=== PATIENT | male | born 2000 | race Caucasian/White ===

== ENCOUNTER 2018-03-27 16:38 | Inpatient (IN) ==
[2018-03-27] MEDS ORDERED: *HR* LORazepam 1 MG TABLET PO PRN (16:52)
[2018-03-27] MEDS ORDERED: MOM Conc 10 ML UD.LIQ PO PRN (16:52)
[2018-03-27] MEDS ORDERED: Acetaminophen 325 MG TABLET PO PRN (16:52)
[2018-03-27] MEDS ORDERED: Nicotine 2 MG GUM BC PRN (16:52)
[2018-03-27] MEDS ORDERED: *HR* LORazepam 2 MG/ML VIAL IM PRN (16:52)
[2018-03-27] MEDS ORDERED: Haloperidol Lactate 5 MG/ML VIAL IM PRN (16:52)
[2018-03-27] MEDS: traZODone 50 MG TABLET PO PRN (21:43)
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
[2018-03-28] MEDS: traZODone 50 MG TABLET PO PRN (22:10)
[2018-03-28] MEDS: lamoTRIgine 25 MG TABLET PO SCH (22:10)
[2018-03-29] MEDS: lamoTRIgine 25 MG TABLET PO SCH ×2 (09:06→21:15)
--- NOTE | 2018-03-29 10:04 | Psychiatry Progress Note ---
Date of Encounter: 03/29/18 Time of Encounter: 10:00 Subjective Interval history: Client admitted following a serious overdose attempt. Client reports he took all of his psych meds. Estimates it was better than 60 pills out of three different bottles. Was in the ICU on a vent. States now that seriousness of his actions "has taught me a lesson." Denies any further SI. Upbeat and future oriented. States from now on his fitrudie is going to give him his medications. Reports he will not even touch pill bottles. His plan is to live in a tent with this fionae for the remainder of the summer. A discharge to the street cannot happen over the weekend so will remain in the hospital until at least the first of the week. Client seems stable but he is lower functioning and clearly has limited coping skills and impulse control. Would benefit from multiple service modalities. Review of Systems Constitutional: Denies: fever, chills, weakness, weight change Eyes: Denies: eye pain, vision change Ears, Nose, Throat: Denies: ear pain, throat pain, dental pain, hearing loss, congestion Cardiovascular: Denies: chest pain, palpitations, dyspnea on exertion Respiratory: Denies: cough, dyspnea, wheezes Gastrointestinal: Denies: abdominal pain, nausea, vomiting, diarrhea, constipation Musculoskeletal: Denies: joint swelling, joint pain Neurological: Denies: headache, weakness, numbness, memory loss Psychiatric: Reports: depression, anxiety, difficulty concentrating Results - Vital Signs Vital Signs: Temp Pulse Resp BP 98.6 F 63 16 112/63 03/28/18 21:00 03/28/18 21:00 03/28/18 21:00 03/28/18 21:00 - Labs Labs: Laboratory Results - last 24 hr 03/29/18 08:01 Creatine Kinase 271 H Assessment and Plan (1) Bipolar disorder Current visit: Yes Status: Acute Plan: Continue hospitalization, Close observation, Suicide Precautions per unit protocol, Encourage participation in unit milieu, Group Therapy, Monitor sleep, Monitor appetite Risks, benefits, side effects, alternatives discussed w/pt: Yes Patient agreeable to treatment: Yes Qualifiers: Active/Remission status: currently active Current bipolar episode type: mixed Current episode severity: severe Psychotic features: without psychotic features Qualified Code(s): F31.63 - Bipolar disorder, current episode mixed, severe, without psychotic features Consult Discharge Plan - Plan Referrals: [facility] [Outside] - 04/02/18 1:30 pm (The above appointment is with Radha Hernandez. When you come to your first appointment, you will be completing paperwork, meeting with a counselor, and developing a treatment plan. You will receive follow- up appointments for on-going services , which could include community support, mental health and substance abuse counseling, groups/partial hospitalization programming, medication assisted treatment, and psychiatric medication management. Please bring the following with you to your first visit to the clinic: 1) proof of household income (two consecutive pay stubs, social security award letter, bank statement, statement letter from [facility], child support statement, IRS 1040 or W2 form, or a statement from the person who financially supports you stating they help provide for your basic needs), 2) proof of residency (drivers license, a piece of mail showing your address, a statement from person you live with verifying you live at their address), 3) your social security card, 4) photo ID, 5) your insurance card (if you have commercial insurance you must call to obtain a prior authorization number before you arrive to your first appointment) and 6) if you do not have insurance but have applied for Medicaid, please bring verification you have applied. The above appointment(s) reflects first availability. You may contact the office regularly to check for cancellations that may allow you to be seen sooner.) [facility] [Outside] - 04/17/18 1:00 pm (The above appointment is with Shelly Carty for outpatient psychiatric assessment and medication management services. Please arrive 15 minutes early to complete paperwork. Please bring your insurance card, photo ID and medications in their original bottles. If you do not have insurance, bring proof of income to apply for the sliding fee scale. If you are unable to keep this appointment, 24 hour business notice of cancellation is expected. The above appointment(s) reflects first availability. You may contact the office regularly to check for cancellations that may allow you to be seen sooner.) Psychiatry Exam - Constitutional Vitals: Temp Pulse Resp BP 98.6 F 63 16 112/63 03/28/18 21:00 03/28/18 21:00 03/28/18 21:00 03/28/18 21:00 General appearance: age & developmentally appropriate - Musculoskeletal Gait: normal Station: relaxed Strength & Tone: normal for patient - Psychiatric Patient Orientation: Yes Person, Yes Time, Yes Place Level of alertness: Alert Behavior: calm, cooperative Psychomotor activity: Normal Eye Contact: Maintains Eye Contact Mood Description: Euthymic/stable Affect description: congruent with mood, full range Speech Volume: Normal Speech pattern: normal rate, normal rhythm, normal tone, fluent, spontaneous Language & Vocabulary: consistent with education Thought Process: Linear, Goal Oriented Thought Content: No Suicidal ideation, No Homicidal ideation, No Overt delusions Perceptual Disturbances: No Auditory hallucinations, No Visual hallucinations Attention Span Ability: Capable of Focused Attention Memory Description: Grossly Intact Patient Reliability: Questionable Historian Fund of knowledge: Yes below average Intelligence Estimate: Below Average Judgment: Limited Insight: Minimal
[2018-03-29] MEDS: traZODone 50 MG TABLET PO PRN (21:15)
[2018-03-30] MEDS: lamoTRIgine 25 MG TABLET PO SCH ×2 (09:34→20:50)
--- NOTE | 2018-03-30 10:07 | Psychiatry Progress Note ---
Date of Encounter: 03/30/18 Time of Encounter: 10:04 Subjective Interval history: Looks good. No issues. Bright and reactive on the unit. Seems lower functioning with limited coping skills but he has been behaviorally appropriate in the hospital. No impulse control problems here. Denies SI. Continues to say what he did scared him and it won't happen again. Seems sincere that he wants to live and does not appear outwardly depressed. Future oriented. Social. Feels ready to leave. Has to leave on a weekday since his discharge plan is to a tent and he has refused homeless shelters and other forms of housing the hospital can provide. However, he is clinically ready to go and can be discharged after the weekend. Review of Systems Constitutional: Denies: fever, chills, weakness, weight change Eyes: Denies: eye pain, vision change Ears, Nose, Throat: Denies: ear pain, throat pain, dental pain, hearing loss, congestion Cardiovascular: Denies: chest pain, palpitations, dyspnea on exertion Respiratory: Denies: cough, dyspnea, wheezes Gastrointestinal: Denies: abdominal pain, nausea, vomiting, diarrhea, constipation Musculoskeletal: Denies: joint swelling, joint pain Neurological: Denies: headache, weakness, numbness, memory loss Psychiatric: Reports: depression, anxiety, difficulty concentrating Results - Vital Signs Vital Signs: Temp Pulse Resp BP 98.8 F 58 17 133/53 03/29/18 20:28 03/29/18 20:28 03/29/18 20:28 03/29/18 20:28 Assessment and Plan (1) Bipolar disorder Current visit: Yes Status: Acute Plan: Continue hospitalization, Close observation, Suicide Precautions per unit protocol, Encourage participation in unit milieu, Group Therapy, Monitor sleep, Monitor appetite Risks, benefits, side effects, alternatives discussed w/pt: Yes Patient agreeable to treatment: Yes Qualifiers: Active/Remission status: currently active Current bipolar episode type: mixed Current episode severity: severe Psychotic features: without psychotic features Qualified Code(s): F31.63 - Bipolar disorder, current episode mixed, severe, without psychotic features Consult Discharge Plan - Plan Referrals: [facility] [Outside] - 04/02/18 1:30 pm (The above appointment is with Radha Hernandez. When you come to your first appointment, you will be completing paperwork, meeting with a counselor, and developing a treatment plan. You will receive follow- up appointments for on-going services , which could include community support, mental health and substance abuse counseling, groups/partial hospitalization programming, medication assisted treatment, and psychiatric medication management. Please bring the following with you to your first visit to the clinic: 1) proof of household income (two consecutive pay stubs, social security award letter, bank statement, statement letter from [facility], child support statement, IRS 1040 or W2 form, or a statement from the person who financially supports you stating they help provide for your basic needs), 2) proof of residency (drivers license, a piece of mail showing your address, a statement from person you live with verifying you live at their address), 3) your social security card, 4) photo ID, 5) your insurance card (if you have commercial insurance you must call to obtain a prior authorization number before you arrive to your first appointment) and 6) if you do not have insurance but have applied for Medicaid, please bring verification you have applied. The above appointment(s) reflects first availability. You may contact the office regularly to check for cancellations that may allow you to be seen sooner.) [facility] [place] [Outside] - 04/17/18 1:00 pm (The above appointment is with Shelly Carty for outpatient psychiatric assessment and medication management services. Please arrive 15 minutes early to complete paperwork. Please bring your insurance card, photo ID and medications in their original bottles. If you do not have insurance, bring proof of income to apply for the sliding fee scale. If you are unable to keep this appointment, 24 hour business notice of cancellation is expected. The above appointment(s) reflects first availability. You may contact the office regularly to check for cancellations that may allow you to be seen sooner.) Psychiatry Exam - Constitutional Vitals: Temp Pulse Resp BP 98.8 F 58 17 133/53 03/29/18 20:28 03/29/18 20:28 03/29/18 20:28 03/29/18 20:28 General appearance: age & developmentally appropriate, well-groomed, well- nourished - Musculoskeletal Gait: normal Station: relaxed Strength & Tone: normal for patient - Psychiatric Patient Orientation: Yes Person, Yes Time, Yes Place Level of alertness: Alert Behavior: calm, cooperative Psychomotor activity: Normal Eye Contact: Maintains Eye Contact Mood Description: Euthymic/stable Affect description: congruent with mood, full range Speech Volume: Normal Speech pattern: normal rate, normal rhythm, normal tone, fluent, spontaneous Language & Vocabulary: consistent with education Thought Process: Linear, Goal Oriented Thought Content: No Suicidal ideation, No Homicidal ideation, No Overt delusions Perceptual Disturbances: No Auditory hallucinations, No Visual hallucinations Attention Span Ability: Capable of Focused Attention Memory Description: Grossly Intact Patient Reliability: Reliable Historian Fund of knowledge: Yes abstraction ability, Yes aware of current events Intelligence Estimate: Below Average Judgment: Limited Insight: Partial
[2018-03-30] MEDS: traZODone 50 MG TABLET PO PRN (20:51)
[2018-03-31] MEDS: lamoTRIgine 25 MG TABLET PO SCH ×2 (08:51→21:00)
[2018-03-31] MEDS: hydrOXYzine pamoate 25 MG CAPSULE PO PRN (10:18)
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
[2018-03-31] MEDS: traZODone 50 MG TABLET PO PRN (21:00)
[2018-04-01] MEDS: lamoTRIgine 25 MG TABLET PO SCH (08:38)
[2018-04-01 09:31] VITALS: BP 121/68
[2018-04-01] MEDS: hydrOXYzine pamoate 25 MG CAPSULE PO PRN (12:18)
--- NOTE | 2018-04-01 14:23 | Discharge Summary ---
Date of Encounter: 04/01/18 Time of Encounter: 14:15 Diagnosis - Discharge Diagnosis (1) Bipolar disorder, current episode mixed, severe, without psychotic features Priority: Primary Status: Acute (2) Adult antisocial behavior Priority: Secondary Status: Acute (3) Suicide attempt by multiple drug overdose Priority: Secondary Status: Resolved Qualifiers: Encounter type: subsequent encounter Qualified Code(s): T50.902D - Poisoning by unspecified drugs, medicaments and biological substances, intentional self-harm, subsequent encounter Medications - Discharge Medications Prescriptions: Citalopram [CeleXA] 10 mg PO DAILY 14 Days #14 tablet Docusate Sodium [Dok] 100 mg PO DAILY 14 Days #14 capsule lamoTRIgine [Lamictal] 25 mg PO BID 14 Days #30 tablet Citalopram [CeleXA] 10 mg PO DAILY 14 Days #14 tablet 04/01/18 [Rx] Docusate Sodium [Dok] 100 mg PO DAILY 14 Days #14 capsule 04/01/18 [Rx] lamoTRIgine [Lamictal] 25 mg PO BID 14 Days #30 tablet 04/01/18 [Rx] 3 Allergy/AdvReac Type Severity Reaction Status Date / Time Cherry Allergy Anaphylaxis Verified 03/27/18 18:30 Results Procedures and tests throughout hospitalization: Completed Lab Orders Category Date Time Status cpk [Creatine Kinase] AM 0400 Lab 03/28/18 08:23 Completed cpk [Creatine Kinase] Routine Lab 03/29/18 08:01 Completed Provider Date of admission: 03/27/18 16:38 Primary care physician: PCP NONE Discharging clinician: Ashish Fuentes Psychiatry Exam - Constitutional Vitals: Temp Pulse Resp BP 98.6 F 53 20 121/68 04/01/18 09:00 04/01/18 09:00 04/01/18 09:00 04/01/18 09:00 General appearance: age & developmentally appropriate, well-groomed, well- nourished - Musculoskeletal Gait: normal Station: relaxed Strength & Tone: normal for patient - Psychiatric Patient Orientation: Yes Person, Yes Time, Yes Place Level of alertness: Alert Behavior: calm, cooperative, impulsive Psychomotor activity: Normal Eye Contact: Maintains Eye Contact Mood Description: Euthymic/stable Affect description: congruent with mood, full range Speech Volume: Normal Speech pattern: normal rate, normal rhythm, normal tone, fluent, spontaneous Language & Vocabulary: consistent with education Thought Process: Linear, Goal Oriented Thought Content: No Suicidal ideation, No Homicidal ideation, No Overt delusions Perceptual Disturbances: No Auditory hallucinations, No Visual hallucinations Attention Span Ability: Capable of Focused Attention Memory Description: Grossly Intact Patient Reliability: Questionable Historian Fund of knowledge: Yes below average, Yes aware of current events Intelligence Estimate: Average Judgment: Limited Insight: Minimal Hospital Course Hospital course: Mr. Greenberg is a 17 year old male Chief complaint I can go on follow-up. History of present illness. The patient was admitted after a multidrug overdose. In the course of the overdose impulsively took an overdose after disagreement. He was among friends but remained lying down for 9 hours he developed rhabdomyolysis and required treatment in the hospital prior to admission to the unit. After admission to the unit the patient disturbed others. He had significant mood disturbances he required a when necessary medicine on the day prior to discharge. The patient was impulsive intrusive and irritable. Efforts are made to restart him on his medicines and he started on low doses of medicine area The diagnosis of bipolar disorder mixed phase includes to depression and any symptoms that the patient had he did not exhibit significant psychosis. The patient had suicidal ideation but later dismissed this as an impulsive suicide attempt even though was lethal were it not for supportive care in the hospital. The patient has adult antisocial savior. This includes violating restraining orders. The patient was incarcerated for 3 months and released February 21. In addition the patient was impulsive and within 1 week and chose to become engaged with 37-year-old woman who he met through and an acquaintance. The patient was facing homelessness but prior to discharge had made arrangements to stay with a friend that he previously resided with. The patient was accepting of a new evaluation and he tolerated medicines without difficulty he did not require any when necessary medicines on the day of discharge. The patient was counseled about impulsivity and its consequences On the day of discharge the patient had a commitment hearing. A judicial order for involuntary hospitalization with forced medication was approved and it was estimated that the patient would need to stay 1-3 days until residential and other arrangements could be made however these appear to occur in rapid succession and he was ready for discharge on the afternoon of April 01. - Time Spent with Patient Total time spent providing and/or coordinating discharge services: Greater than 30 minutes Assessment and Plan - Patient/Caregiver Discharge Instructions Activity: resume usual activities as tolerated Diet: regular diet Additional Instructions: Avoid alcohol and drugs of abuse - Follow up Plan Follow up with: Marisela Harrell [Outside] - 04/02/18 1:30 pm (The above appointment is with Radha Hernandez. When you come to your first appointment, you will be completing paperwork, meeting with a counselor, and developing a treatment plan. You will receive follow- up appointments for on-going services , which could include community support, mental health and substance abuse counseling, groups/partial hospitalization programming, medication assisted treatment, and psychiatric medication management. Please bring the following with you to your first visit to the clinic: 1) proof of household income (two consecutive pay stubs, social security award letter, bank statement, statement letter from [facility], child support statement, IRS 1040 or W2 form, or a statement from the person who financially supports you stating they help provide for your basic needs), 2) proof of residency (drivers license, a piece of mail showing your address, a statement from person you live with verifying you live at their address), 3) your social security card, 4) photo ID, 5) your insurance card (if you have commercial insurance you must call to obtain a prior authorization number before you arrive to your first appointment) and 6) if you do not have insurance but have applied for Medicaid, please bring verification you have applied. The above appointment(s) reflects first availability. You may contact the office regularly to check for cancellations that may allow you to be seen sooner.) [facility] [Outside] - 04/17/18 1:00 pm (The above appointment is with Shelly Carty for outpatient psychiatric assessment and medication management services. Please arrive 15 minutes early to complete paperwork. Please bring your insurance card, photo ID and medications in their original bottles. If you do not have insurance, bring proof of income to apply for the sliding fee scale. If you are unable to keep this appointment, 24 hour business notice of cancellation is expected. The above appointment(s) reflects first availability. You may contact the office regularly to check for cancellations that may allow you to be seen sooner.) Functional capacity at discharge: independent ambulation Overall status at discharge: Stable Disposition: Home, Self-Care Quality - Multiple Antipsychotics Patient discharged on 2 or more antipsychotic medications: No Procedures - Procedures Procedures: Medication Management, Crisis Stabilization, Supportive Therapy, Group Therapy, Psychoeducational Therapy
== END 2018-04-01 16:05 | disposition home or self-care (01) | DRG 753 ==
LOC: 1ANU 16:38 → SUATTDRO 16:38
PROVIDERS: ADMIT Psychiatry & Neurology Psychiatry; ATTEND Psychiatry & Neurology Forensic Psychiatry